=== PATIENT | male | born 1970 | race Caucasian/White ===

== ENCOUNTER 2017-04-24 18:00 | Emergency (ER) | payer SELFPAY ==
[2017-04-24 18:06] VITALS: BP 149/88; PULSE 75; TEMP 97.8; BMI 29.4
--- NOTE | 2017-04-24 18:51 | PDOC ---
History of Present Illness - General Chief Complaint: Ear Problem Stated Complaint: EAR PROBLEM Time Seen by Provider: 04/24/17 18:03 History Source: Patient Exam Limitations: No Limitations - History of Present Illness Initial Comments: 04/24/17 18:43 46 yr male with 2 weeks left ear pain. Pt using neomycin drops that were prescribed on April 03. Pt states no improvement with pain. no fever no dental pain. Severity: moderate Past History - Past Medical History Allergies/Adverse Reactions: Allergies Allergy/AdvReac Type Severity Reaction Status Date / Time No Known Allergies Allergy Verified 04/24/17 18:06 Home Medications: Ambulatory Orders Amoxicillin - [Amoxicillin 875mg Tablet -] 875 mg PO BID #20 tablet 04/24/17 - Psycho/Social/Smoking Cessation Hx Suicidal Ideation: No Smoking History: Never smoked Information on smoking cessation initiated: No Review of Systems - Review of Systems Able to Perform ROS?: Yes Is the patient limited Occitan proficient: Yes HEENTM: Yes: Symptoms Reported *Physical Exam - Vital Signs Last Vital Signs Temp Pulse Resp BP Pulse Ox 97.8 F 75 18 149/88 98 04/24/17 18:02 04/24/17 18:02 04/24/17 18:02 04/24/17 18:02 04/24/17 18:02 - Physical Exam General Appearance: Yes: Nourished, Appropriately Dressed HEENT: positive: EOMI, WANDA, Pharynx Normal, TM Dull, Other (white/yellow discharge in canal ). negative: Pharyngeal Erythema, Nasal Congestion, Rhinorrhea Neck: positive: Supple Respiratory/Chest: positive: Lungs Clear, Normal Breath Sounds Cardiovascular: positive: Regular Rhythm, Regular Rate Musculoskeletal: positive: Normal Inspection Extremity: positive: Normal Capillary Refill, Normal Inspection, Normal Range of Motion Integumentary: positive: Normal Color, Dry, Warm Neurologic: positive: Fully Oriented, Alert, Normal Mood/Affect, Normal Response , Motor Strength 5/5 Medical Decision Making - Medical Decision Making 04/24/17 18:44 cc: left ear pain 2 weeks using drops with no relief no fever, neg mastoid tenderness no dental pain, FROM of the jaw will prescribe amoxicllin for 10 days for AOM pt is aware via translation that follow up with ENT is very important to continue the care plan. 04/24/17 18:59 *DC/Admit/Observation/Transfer Diagnosis at time of Disposition: Otitis media Qualifiers: Otitis media type: suppurative Chronicity: acute Laterality: left Recurrence: not specified as recurrent Spontaneous tympanic membrane rupture: without spontaneous rupture Qualified Code(s): H66.002 - Acute suppurative otitis media without spontaneous rupture of ear drum, left ear - Discharge Dispostion Disposition: HOME Condition at time of disposition: Good - Prescriptions Prescriptions: Amoxicillin - [Amoxicillin 875mg Tablet -] 875 mg PO BID #20 tablet - Referrals Referrals: Billy Wood MD [Staff Physician] - - Patient Instructions Additional Instructions: follow with ENT this week call tomorrow to make appointment take the antibiotics as prescribed take motrin for pain as needed nothing in the ear no water no Qtips Return to ER if any worsening symptoms Siga con ENT esta semana llame maana para hacer christine betito Michel los antibiticos segn lo prescrito Michel motrin para el dolor cuando sea necesario [place] en el odo no hay agua no Qtips Vuelva al ER si algn empeoramiento de los sntomas
== END 2017-04-24 19:03 | disposition home or self-care (01) ==
LOC: JERFT 18:00
DX: H66.002 Acute suppurative otitis media without spontaneous rupture of ear drum, left ear (principal)
CPT/HCPCS: 87070; 87205; 99281-25

== ENCOUNTER 2017-04-29 17:47 | Emergency (ER) | payer SELFPAY ==
[2017-04-29 17:58] VITALS: BP 158/92; PULSE 80; TEMP 97.5; BMI 29.1
--- NOTE | 2017-04-29 19:33 | PDOC ---
History of Present Illness - General Chief Complaint: Ear Problem Stated Complaint: EAR PAIN Time Seen by Provider: 04/29/17 18:57 History Source: Patient Exam Limitations: Language Barrier - History of Present Illness Initial Comments: 04/29/17 19:37 Return visit for concerns about some slight amount of swelling to the left side of his cheek. Was seen here on April 24 and treated for a severe otitis media to his left ear. Was given Augmentin 875 mg twice a day which patient is taking appropriately. Also given polymyxin orotic solution which patient is using appropriately. Was not aware he could take ibuprofen or any pain relief/anti- inflammatory with all the other medications that he is taking. Has appointment to see Dr. Wood /ENT on May 03 for follow-up visit. Severity: mild Associated Symptoms: reports: denies symptoms. denies: fever/chills, headaches , loss of appetite, malaise Past History - Travel Traveled outside of the country in the last 30 days: No Close contact w/someone who was outside of country & ill: No - Past Medical History Allergies/Adverse Reactions: Allergies Allergy/AdvReac Type Severity Reaction Status Date / Time No Known Allergies Allergy Verified 04/29/17 17:57 Home Medications: Ambulatory Orders Amoxicillin - [Amoxicillin 875mg Tablet -] 875 mg PO BID #20 tablet 04/24/17 Other medical history: NONE - Psycho/Social/Smoking Cessation Hx Anxiety: No Suicidal Ideation: No Smoking History: Never smoked Hx Alcohol Use: No Drug/Substance Use Hx: No Substance Use Type: None Review of Systems - Review of Systems Able to Perform ROS?: Yes Is the patient limited Bhutanese proficient: Yes Constitutional: Yes: Symptoms Reported, See HPI, Malaise HEENTM: Yes: Symptoms Reported, See HPI. No: Nose Congestion, Mouth Pain Respiratory: Yes: See HPI. No: Symptoms reported Musculoskeletal: Yes: See HPI. No: Symptoms Reported Integumentary: Yes: See HPI. No: Symptoms Reported All Other Systems: Reviewed and Negative *Physical Exam - Vital Signs Last Vital Signs Temp Pulse Resp BP Pulse Ox 97.5 F L 80 20 158/92 98 04/29/17 17:54 04/29/17 17:54 04/29/17 17:54 04/29/17 17:54 04/29/17 17:54 - Physical Exam General Appearance: Yes: Nourished, Appropriately Dressed, Apparent Distress, Mild Distress HEENT: positive: EOMI, WANDA, Other. negative: Normal ENT Inspection, TMs Normal (patient with a dense white left TM with no drainage noted or no swelling to external canal. Completely occluded. Right TM has some scar tissue noted but landmarks easily visualized. No drainage from right ear. Patient has no mastoid pain or swelling), Pharynx Normal, Pharyngeal Erythema, Tonsillar Exudate, Rhinorrhea, Sinus Tenderness Neck: positive: Supple. negative: Tender Respiratory/Chest: positive: Lungs Clear Gastrointestinal/Abdominal: positive: Soft. negative: Tender Musculoskeletal: positive: Normal Inspection Extremity: positive: Normal Inspection Integumentary: positive: Normal Color Neurologic: positive: car and yard supervisor II-XII NML intact, Fully Oriented, Alert, Normal Mood/ Affect, Normal Response, Motor Strength 03/03 Medical Decision Making - Medical Decision Making 04/29/17 19:44 Persistent otitis, possible fungal infection. Patient is taking Augmentin, and polymyxin drops appropriately. Has not taken any anti-inflammatory. We will encourage patient to complete course of antibiotics and keep appointment with Dr. Wood on the fifth 2 when sure bacterial infection as covered. Understands and given information in Urdu that with return for worsened swelling, pain, redness to his face, or other problems before the fifth if needed. 04/29/17 19:44 *DC/Admit/Observation/Transfer Diagnosis at time of Disposition: Otitis media not resolved Qualifiers: Laterality: left Qualified Code(s): H66.92 - Otitis media, unspecified, left ear - Discharge Dispostion Disposition: HOME Condition at time of disposition: Stable Admit: No - Patient Instructions Printed Discharge Instructions: Middle Ear Infection Additional Instructions: Rest, lots of fluids; water, teas, soups Saltwater girls and steamy showers Hot wet soaks to ear/hot packs may help relieve some pain Continue ibuprofen or Tylenol for pain and fevers Complete all antibiotics as directed Continue ear drops as directed followup with ENT doctor in on May 03 as scheduled Return to emergency department for swelling to face that includes fevers, pain, or drainage from ear Reposo, mucho lquido, agua, infusiones, sopas de agua salada de nias y duchas de vapor hmedo caliente empapa a la oreja o paquetes calientes pueden ayudar a aliviar algo del dolor continuar Tylenol o ibuprofeno para el dolor y la fiebre completar todos los antibiticos marco se indica continuar gotas anita que dirige el seguimiento con el otorrinolaringlogo en el marco estaba previsto Volver al departamento de urgencias para la hinchazn de la dori que incluye fiebre, dolor de odo o supuracin Print Language: JAPANESE - Post Discharge Activity Work/School Note: Back to Work
== END 2017-04-29 20:03 | disposition home or self-care (01) ==
LOC: JERFT 17:47
DX: H66.92 Otitis media, unspecified, left ear (principal)
CPT/HCPCS: 99281-25

== ENCOUNTER 2017-06-05 09:27 | Emergency (ER) | payer SELFPAY ==
[2017-06-05 09:38] VITALS: BMI 29.1
--- NOTE | 2017-06-05 09:42 | PDOC ---
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 Pt reports that he noticed pain in his right groin in the afternoon. He denies any heavy lifting before then or in general. He states that the pain has been constant since then, worsened by standing and improved by lying down, 05/08, radiates to his right flank sometimes. He reports that he feels a bulge where his pain is. He denies fevers, chills, pain in other parts of his abdomen, nausea, emesis, diarrhea, constipation, and testicular pain. He states that the pain is tolerable, and he is able to work with, and it just bothersome. 06/05/17 10:34 <Vaibhav Phipps - Last Filed: 06/05/17 15:19> - General Chief Complaint: Pain Stated Complaint: ABD PAIN Time Seen by Provider: 06/05/17 09:42 Past History <Shu Barillas - Last Filed: 06/05/17 12:09> - Past Medical History Other medical history: DENIES Comment:: 06/05/17 10:31 PMH: none PSH: none MEds: none Allergies: NKDA Social Hx: denies toxic habits - Psycho/Social/Smoking Cessation Hx Anxiety: No Suicidal Ideation: No Smoking History: Never smoked Information on smoking cessation initiated: No Hx Alcohol Use: No Drug/Substance Use Hx: No Substance Use Type: None <Vaibhav Phipps - Last Filed: 06/05/17 15:19> - Past Medical History Allergies/Adverse Reactions: Allergies Allergy/AdvReac Type Severity Reaction Status Date / Time No Known Allergies Allergy Verified 06/05/17 09:38 Home Medications: Ambulatory Orders NK [No Known Home Medication] 06/05/17 Review of Systems - Review of Systems Comments:: 06/05/17 10:31 GENERAL: No fever, chills, night sweats, or weakness. HEAD, EYES, EARS, NOSE AND THROAT: No change in vision, ear pain, or sore throat CARDIOVASCULAR: No palpitations RESPIRATORY: No cough, wheezing, or hemoptysis. GASTROINTESTINAL: No nausea, vomiting, diarrhea, constipation, or blood in the stool. GENITOURINARY: No dysuria, + frequency, no urgency MUSCULOSKELETAL: No joint or muscle swelling or pain. SKIN: No rashes or pruritis ENDOCRINE: No increased thirst. No abnormal weight change NEUROLOGIC: + headache, no dizziness, loss of consciousness, or change in strength/sensation. <Vaibhav Phipps - Last Filed: 06/05/17 15:19> *Physical Exam - Vital Signs Last Vital Signs Temp Pulse Resp BP Pulse Ox 97.7 F 68 18 154/84 99 06/05/17 09:35 06/05/17 09:35 06/05/17 09:35 06/05/17 09:35 06/05/17 09:35 <Shu Barillas - Last Filed: 06/05/17 12:09> - Vital Signs Last Vital Signs Temp Pulse Resp BP Pulse Ox 97.7 F 68 18 154/84 99 06/05/17 09:35 06/05/17 09:35 06/05/17 09:35 06/05/17 09:35 06/05/17 09:35 - Physical Exam Comments: 06/05/17 10:32 GENERAL: Awake, alert, and fully oriented, in no acute distress HEAD: normocephalic, atraumatic HEENT: PERRLA, EOMI NECK: Normal ROM, supple, no lymphadenopathy, JVD, or masses HEART: Regular rate and rhythm, normal S1 and S2, no murmurs, rubs or gallops, peripheral pulses normal and equal bilaterally. LUNGS: CTAB, no wheezing, no rales ABDOMEN: Soft, mildy tender to palpation of right groin, no bulge present at rest or with cough, nondistended, normoactive bowel sounds. No guarding, no rebound. No masses EXTREMITIES: Normal range of motion, no edema. SKIN: Warm, dry, no rashes or lesions noted. NEUROLOGICAL: Cranial nerves II through XII grossly intact. Normal speech, normal gait, no focal sensorimotor deficits <Vaibhav Phipps - Last Filed: 06/05/17 15:19> Procedures - Bedside Ultrasound Other: RENAL US, flank pain see att note MDM <Shu Barillas - Last Filed: 06/05/17 12:09> ED Treatment Course - ADDITIONAL ORDERS Additional order review: Laboratory Results 06/05/17 11:20 Urine Color Colorless Urine Appearance Clear Urine pH 5.0 Urine Protein Negative Urine Glucose (UA) Negative Urine Ketones Negative Urine Blood Negative Urine Nitrite Negative Urine Bilirubin Negative Urine Urobilinogen Negative Ur Leukocyte Esterase Negative - RADIOLOGY Radiology Studies Ordered: Category Date Time Status ABDOMEN & PELVIS CT W/O CONTR [CT] Stat CT Scan 06/05/17 11:55 Ordered <Shu Barillas - Last Filed: 06/05/17 12:09> Medical Decision Making - Medical Decision Making 06/05/17 10:33 06/05/17 10:34 46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 -CT abdomen: no evidence of hernia or any other abdominal/pelvic pathology 06/05/17 15:10 <Vaibhav Phipps - Last Filed: 06/05/17 15:19> *DC/Admit/Observation/Transfer <Shu Barillas - Last Filed: 06/05/17 12:09> - Discharge Dispostion Admit: No - Attestations Physician Attestion: 06/05/17 15:19 I, Dr. Vaibhav Phipps, attest that this document has been prepared under my direction and personally reviewed by me in its entirety. I further attest, that it accurately reflects all work, treatment, procedures and medical decision -making performed by me. <Vaibhav Phipps - Last Filed: 06/05/17 15:19> Diagnosis at time of Disposition: Hernia - Discharge Dispostion Disposition: HOME Condition at time of disposition: Stable - Patient Instructions Printed Discharge Instructions: DI for Groin Hernia Additional Instructions: Your CT scan did not show any evidence of a hernia while your history is suggestive of a groin hernia. If your symptoms worsen, your bowel becomes incarcerated, or you develop fevers or chills, please return to ED. You were given a handout of the contact information of general surgeons who you should contact for an elective hernia repair in the future if your symptoms become more intolerable. Print Language: TAIWANESE
[2017-06-05 11:39] LABS: URINE APPEARANCE CLEAR; URINE BILIRUBIN NEGATIVE (NEGATIVE); URINE BLOOD NEGATIVE (NEGATIVE); URINE COLOR COLORLESS; URINE GLUCOSE (UA) NEGATIVE (NEGATIVE); URINE KETONE NEGATIVE (NEGATIVE); URINE LEUK ESTERASE NEGATIVE (NEGATIVE); URINE NITRITE NEGATIVE (NEGATIVE); URINE PROTEIN NEGATIVE (NEGATIVE); URINE UROBILINOGEN NEGATIVE mg/dL (0.2-1.0)
--- NOTE | 2017-06-05 12:02 | PDOC ---
Attending Attestation - Resident Resident Name: Vaibhav Phipps - ED Attending Attestation I have performed the following: I have examined & evaluated the patient, The case was reviewed & discussed with the resident, I agree w/resident's findings & plan, Exceptions are as noted - HPI HPI: 06/05/17 11: 46 yo M with no pmhx here with c/0 right groin pain, started 4 days ago. no n/v worse with standing, better with lyin down,. no urinary complaints. no testicular pain. no f/c no trauma. now has improved, but still has some pain.l no known h/o hernia. no h/o kidney stone. occasionaly pain was radiating to groin. - Physicial Exam PE: 06/05/17 12:01 awake alert lungs clear heart rrr no mrg. abdl soft NT no palp hernia, on vasalva, no testicular tenderness. no cva tenderness. ext wwp. - Medical Decision Making 06/05/17 12:01 plan ua r/o hematuria, or bedside renal us to evaluate for hydronephrosis. possible ct a/p. 06/05/17 15:06 ct unremarkable. ua normal.dc home.
[2017-06-05 15:57] VITALS: BP 133/72; PULSE 72; TEMP 98.3
== END 2017-06-05 15:57 | disposition home or self-care (01) ==
LOC: JER 09:27
DX: K46.9 Unspecified abdominal hernia without obstruction or gangrene (principal)
CPT/HCPCS: 74176-TC; 81003; 99282-25

== ENCOUNTER 2017-08-07 09:41 | Emergency (ER) | payer OTHER ==
[2017-08-07 09:50] VITALS: BP 134/81; PULSE 74; TEMP 98.8; BMI 27.4
--- NOTE | 2017-08-07 10:22 | PDOC ---
History of Present Illness - General History Source: Patient Exam Limitations: No Limitations - History of Present Illness Initial Comments: 08/07/17 11:08 The patient is a 47 year old male with no significant PMH who presents to the emergency department with rectal bleeding and rectal pain beginning approximately yesterday. The patient reports going to the bathroom yesterday and feeling rectal pain upon using the bathroom, as well as some rectal bleeding upon leaving the bathroom. The patient reports using the bathroom again this morning and noting blood mixed with his stool and intermittent rectal bleeding afterwards, prompting his visit. The patient also notes feeling associated groin pain this morning that has since subsided. The patient reports visiting [facility] [address] for a checkup and being prescribed Amlodipine. The patient denies chest pain, shortness of breath, headache and dizziness. Denies fever, chills, nausea, vomit, diarrhea and constipation. Denies dysuria, frequency, urgency and hematuria. Allergies: NKA Past surgical history: None reported. Social history: No reported cigarette, alcohol, or drug use. PCP: None, goes to [facility] [address]. <Mir Valderrama - Last Filed: 08/07/17 11:08> <Cj Maldonado - Last Filed: 08/07/17 11:17> - General Chief Complaint: Rectal Bleed Stated Complaint: RECTAL BLEED Time Seen by Provider: 08/07/17 10:21 Past History <Mir Valderrama - Last Filed: 08/07/17 11:08> - Past Medical History HTN: Yes - Suicide/Smoking/Psychosocial Hx Smoking History: Never smoked Information on smoking cessation initiated: No Hx Alcohol Use: No Drug/Substance Use Hx: No Substance Use Type: None <Cj Maldonado - Last Filed: 08/07/17 11:17> - Past Medical History Allergies/Adverse Reactions: Allergies Allergy/AdvReac Type Severity Reaction Status Date / Time No Known Allergies Allergy Verified 08/07/17 09:46 Home Medications: Ambulatory Orders Amlodipine Besylate 10 mg PO DAILY 08/07/17 Hydrocortisone/Pramoxine [Proctofoam-Hc Foam] 10 gm RC QID #2 foam 08/07/17 Review of Systems - Review of Systems Able to Perform ROS?: Yes Comments:: 08/07/17 11:08 GENERAL/CONSTITUTIONAL: No fever or chills. No weakness. HEAD, EYES, EARS, NOSE AND THROAT: No change in vision. No ear pain or discharge. No sore throat. CARDIOVASCULAR: No chest pain or shortness of breath. RESPIRATORY: No cough, wheezing, or hemoptysis. GASTROINTESTINAL: (+) Rectal bleeding. (+) Red bloody stool, mixed in. No nausea , vomiting, diarrhea or constipation. GENITOURINARY: No dysuria, frequency, or change in urination. MUSCULOSKELETAL: (+) Bilateral groin pain. No joint pain. No neck or back pain. SKIN: No rash NEUROLOGIC: No headache, vertigo, loss of consciousness, or change in strength/ sensation. ENDOCRINE: No increased thirst. No abnormal weight change. HEMATOLOGIC/LYMPHATIC: No anemia, easy bleeding, or history of blood clots. ALLERGIC/IMMUNOLOGIC: No hives or skin allergy. <Mir Valderrama - Last Filed: 08/07/17 11:08> - Review of Systems All Other Systems: Reviewed and Negative <Cj Maldonado - Last Filed: 08/07/17 11:17> *Physical Exam - Vital Signs Last Vital Signs Temp Pulse Resp BP Pulse Ox 98.8 F 74 18 134/81 100 08/07/17 09:47 08/07/17 09:47 08/07/17 09:47 08/07/17 09:47 08/07/17 09:47 - Physical Exam Comments: 08/07/17 11:08 GENERAL: Awake, alert, and fully oriented, in no acute distress HEAD: No signs of trauma EYES: PERRLA, EOMI, sclera anicteric, conjunctiva clear ENT: Auricles normal inspection, hearing grossly normal, nares patent, oropharynx clear without exudates. Moist mucosa NECK: Normal ROM, supple, no lymphadenopathy, JVD, or masses LUNGS: Breath sounds equal, clear to auscultation bilaterally. No wheezes, and no crackles HEART: Regular rate and rhythm, normal S1 and S2, no murmurs, rubs or gallops ABDOMEN: Soft, nontender, normoactive bowel sounds. No guarding, no rebound. No masses RECTAL: (+) Pea sized <0.5cm. hemorrhoid at 6 o clock, tender and inflamed. EXTREMITIES: Normal range of motion, no edema. No clubbing or cyanosis. No cords, erythema, or tenderness NEUROLOGICAL: Cranial nerves II through XII grossly intact. Normal speech, normal gait SKIN: Warm, Dry, normal turgor, no rashes or lesions noted. <Mir Valderrama - Last Filed: 08/07/17 11:08> - Vital Signs Last Vital Signs Temp Pulse Resp BP Pulse Ox 98.8 F 74 18 134/81 100 08/07/17 09:47 08/07/17 09:47 08/07/17 09:47 08/07/17 09:47 08/07/17 09:47 <Cj Maldonado - Last Filed: 08/07/17 11:17> *DC/Admit/Observation/Transfer - Attestations Scribe Attestion: 08/07/17 11:09 Documentation prepared by Mir Valderrama, acting as medical service technician for Cj Maldonado DO. <Mir Valderrama - Last Filed: 08/07/17 11:08> - Discharge Dispostion Admit: No - Attestations Physician Attestion: 08/07/17 10:22 I, Dr. Cj Maldonado, attest that this document has been prepared under my direction and personally reviewed by me in its entirety. I further attest, that it accurately reflects all work, treatment, procedures and medical decision -making performed by me. <Cj Maldonado - Last Filed: 08/07/17 11:17> Diagnosis at time of Disposition: Bleeding external hemorrhoids - Discharge Dispostion Disposition: HOME Condition at time of disposition: Unchanged/Unknown - Prescriptions Prescriptions: Hydrocortisone/Pramoxine [Proctofoam-Hc Foam] 10 gm RC QID #2 foam - Referrals Referrals: Pollo Cortez MD [Staff Physician] - - Patient Instructions Printed Discharge Instructions: DI for Hemorrhoids Additional Instructions: Rahul- Please follow everything that Mir told you - See Dr Cortez as soon as possible. Eat lots of vegetables, salads and meats, go easy on carbohydrates and cut out cholesterol as much as you can. Best- Dr. Cj Maldonado
== END 2017-08-07 11:19 | disposition home or self-care (01) ==
LOC: JER 09:41
DX: K64.4 Residual hemorrhoidal skin tags (principal); I10 Essential (primary) hypertension
CPT/HCPCS: 99282-25